=== PATIENT | male | born 1960 | race Caucasian/White ===

== ENCOUNTER → 2017-03-30 | Outpatient (CLI) | payer BC | LOC: COL.VAS 13:26 | DX: R09.89 Other specified symptoms and signs involving the circulatory and respiratory systems (principal) ==

== ENCOUNTER 2019-03-16 13:45 | Observation (INO) | payer BC ==
[2019-03-16] VITALS (11 sets, daily range): BP systolic 99–123; BP diastolic 60–87; PULSE 55–90; TEMP 97.4–99.3
[~2019-03-16] VITALS: Ht 180.3 cm; Wt 77.0 kg
[2019-03-16] MEDS ORDERED: PRINIVIL10 MG PO (14:03)
--- NOTE | 2019-03-16 17:10 | NUR ---
Patient up from OR, alert and oriented x3. Lap sites x 3 with edges well approximated. VSS. Post op fluids infusing per orders to LAC. Denies pain or further needs at this time. Will continue to monitor.
--- NOTE | 2019-03-16 18:12 | NUR ---
Patient has done well since arrival from OR. Tolerating diet without difficulty. Patient up to restroom to void, steady gait. Denies further needs at this time. 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
--- NOTE | 2019-03-16 20:15 | NUR ---
Sitting up in bed with eyes open. Family at bedside. Denies pain or nausea. [place] one time a sharp pain but it subsided. Lap sites x3 with edges well approximated, no redness/drainage/edema noted. Denies needs at this time.
--- NOTE | 2019-03-16 22:24 | NUR ---
Lying in bed in supine position. Denies pain or nausea. Patient denies any further needs at this time.
[2019-03-17 04:06] VITALS: BP 100/60; PULSE 55; TEMP 97.7
--- NOTE | 2019-03-17 04:44 | NUR ---
Lying in bed in supine position with eyes closed. Eyes open when name called out. Denies pain or nausea. Patient declines any further needs at this time.
--- NOTE | 2019-03-17 07:30 | NUR ---
Patient resting in bed, at bedside. Patient is alert and oriented, answers questions appropriately. Patient rates pain at a 4/10 and requests PRN tylenol. Patient denies nausea or further needs, call light within reach.
[2019-03-17 08:06] VITALS: BP 119/71; PULSE 69; TEMP 97.6
--- NOTE | 2019-03-17 10:30 | NUR ---
Discharge teaching completed. Discussed importance of making and keeping follow up appointment. Discussed medications and gave paper scripts for antibiotic and pain medication. Reviewed restrictions and indications of complications. Removed INT, catheter intact, hemostasis achieved. Patient denies questions or concerns. Patient and confirm all personal belongings gathered, patient escorted to ED entrance where he entered a private vehicle.
--- NOTE | 2019-03-17 10:55 | NUR ---
Visited, listened, and provided spiritual care.
== END 2019-03-17 10:35 | disposition home or self-care (01) ==
LOC: SDCO 13:45 → SURG 13:45 → SDCO 14:18 → SURG 14:18
PROVIDERS: ADMIT Surgery
DX: K35.80 Unspecified acute appendicitis (principal); G47.33 Obstructive sleep apnea (adult) (pediatric); K21.9 Gastro-esophageal reflux disease without esophagitis; I10 Essential (primary) hypertension; Z87.891 Personal history of nicotine dependence
CPT/HCPCS: A4216; G0378; J0330; J0696; J1100; J2270; J2405; J2704; J3010; J7120

== ENCOUNTER → 2019-03-16 | Outpatient (CLI) | payer BC ==
[~2019-03-16] MED LIST: PRINIVIL10 MG PO
== END ==
LOC: COL.RAD 11:43
DX: K37 Unspecified appendicitis (principal)
CPT/HCPCS: Q9967